=== PATIENT | female | born 1975 | race Caucasian/White ===

== ENCOUNTER 2022-07-16 11:55 | Outpatient (REF) | payer BC, SELFPAY ==
[2022-07-16 13:55] LABS: MANUAL DIFF FLAG NO
[2022-07-16 14:04] LABS: Basophils Absolute Auto 0.1 X10*3/uL (0.0-0.2); Basophils Percent Auto 0.7 % (0-2); Eosinophils Absolute Auto 0.1 X10*3/uL (0.0-0.4); Eosinophils Percent Auto 0.7 % (0-4); Hematocrit 41.3 % (37.0-47.0); Hemoglobin 13.7 g/dl (12.0-16.0); Imm Gran Abs Auto 0.02 X10*3/uL (0.00-0.03); Imm Gran Pct Auto 0.3 % (0.0-0.4); Lymphocytes Absolute Auto 1.4 X10*3/uL (1.2-4.9); Lymphocytes Percent Auto 20.2 % (20-40); Mean Corpuscular HGB Conc 33.2 g/dl (31.0-35.0); Mean Corpuscular Hemoglobin 29.1 pg (27.0-33.0); Mean Corpuscular Volume 87.9 fL (80.0-98.0); Mean Platelet Volume 9.7 fL (9.4-12.3); Monocytes Absolute Auto 0.4 X10*3/uL (0.1-1.2); Monocytes Percent Auto 5.5 % (2-11); Neutrophils Absolute Auto 5.1 x10*3/uL (2.0-8.3); Neutrophils Percent Auto 72.6 % (45-73); Platelet Count 205 X10*3/uL (160-400); Red Cell Distribution Width 11.9 % (11.0-16.0)
[2022-07-16 14:19] LABS: Estimated Average Glucose 105 mg/dL; Hemoglobin A1c % 5.3 %
[2022-07-16 14:25] LABS: Alanine Aminotransferase 15 U/L (0-31); Albumin Level 4.6 g/dL (3.5-5.0); Alkaline Phosphatase 64 U/L (39-117); Anion Gap 13 (12-20); Aspartate Amino Transferase 16 U/L (5-31); Bilirubin Total 0.4 mg/dL (0.0-1.0); Blood Urea Nitrogen 15 mg/dL (9-16); C Reactive Protein 0.33 mg/dL (< or = 0.50); Calcium 9.5 mg/dL (8.4-10.2); Carbon Dioxide 31 mmol/L (22-29); Chloride 103 mmol/L (96-108); Estimated Glomerular Filt Rate > 60; Glucose Random 96 mg/dL (60-115); Iron 79 mcg/dL (30-160); Percent Iron Saturation 25 % (15-50); Potassium 5.4 mmol/L (3.3-5.1); Sodium 142 mmol/L (135-145); Total Iron Binding Capacity 310 mcg/dL (228-428); Total Protein 7.1 g/dL (6.5-8.0); Unsaturated Iron Binding 231 ug/dL
[2022-07-16 14:46] LABS: Ferritin 99 ng/mL (10-250); Thyroid Stimulating Hormone 0.65 uIU/mL (0.32-4.0); Vitamin D 25-OH Total 29.2 ng/mL (>30)
[2022-07-16 15:15] LABS: Folate 16.6 ng/mL (> or = 4.0); Vitamin B12 457 pg/mL (200-900)
[2022-07-17 09:03] LABS: Lyme Abs Screen <0.90 index
== END 2022-07-16 11:56 | disposition home or self-care (01) ==
LOC: HO.MANLDS 11:55
PROVIDERS: Visit Provider Internal Medicine
DX: R53.83 Other fatigue (principal); R63.4 Abnormal weight loss
CPT/HCPCS: 36415; 80053; 82306; 82607; 82728; 82746; 83036; 83540; 84439; 84443; 85025; 86140; 86617; 86618

== ENCOUNTER 2023-04-29 08:45 | Outpatient (REF) | payer BC, SELFPAY ==
[2023-04-29 11:14] LABS: MANUAL DIFF FLAG NO
[2023-04-29 11:40] LABS: Basophils Percent Auto 0.6 % (0-2); Eosinophils Absolute Auto 0.1 X10*3/uL (0.0-0.4); Hematocrit 43.7 % (37.0-47.0); Hemoglobin 14.3 g/dl (12.0-16.0); Imm Gran Abs Auto 0.01 X10*3/uL (0.00-0.03); Imm Gran Pct Auto 0.2 % (0.0-0.4); Lymphocytes Absolute Auto 1.4 X10*3/uL (1.2-4.9); Lymphocytes Percent Auto 30.1 % (20-40); Mean Corpuscular HGB Conc 32.7 g/dl (31.0-35.0); Mean Corpuscular Hemoglobin 29.7 pg (27.0-33.0); Mean Corpuscular Volume 90.7 fL (80.0-98.0); Mean Platelet Volume 10.2 fL (9.4-12.3); Monocytes Absolute Auto 0.3 X10*3/uL (0.1-1.2); Monocytes Percent Auto 6.9 % (2-11); Neutrophils Absolute Auto 2.8 x10*3/uL (2.0-8.3); Neutrophils Percent Auto 59.2 % (45-73); Platelet Count 194 X10*3/uL (160-400); Red Blood Count 4.82 X10*6/uL (4.20-5.50); Red Cell Distribution Width 11.9 % (11.0-16.0); White Blood Count 4.7 X10*3/uL (4.8-10.8)
[2023-04-29 12:11] LABS: Alanine Aminotransferase 12 U/L (0-31); Albumin Level 4.7 g/dL (3.5-5.0); Alkaline Phosphatase 55 U/L (39-117); Anion Gap 14 (12-20); Aspartate Amino Transferase 17 U/L (5-31); Bilirubin Total 0.3 mg/dL (0.0-1.0); Blood Urea Nitrogen 15 mg/dL (9-16); Calcium 9.9 mg/dL (8.4-10.2); Carbon Dioxide 28 mmol/L (22-29); Chloride 106 mmol/L (96-108); Cholesterol 249 mg/dL; Estimated Glomerular Filt Rate > 60; Glucose Random 96 mg/dL (60-115); HDL Cholesterol 53 mg/dL; Iron 80 mcg/dL (30-160); LDL Cholesterol Calculated 176 mg/dl; Percent Iron Saturation 29 % (15-50); Potassium 4.5 mmol/L (3.3-5.1); Sodium 143 mmol/L (135-145); Total Iron Binding Capacity 280 mcg/dL (228-428); Total Protein 7.2 g/dL (6.5-8.0); Triglycerides 101 mg/dL; Unsaturated Iron Binding 200 ug/dL
[2023-04-29 12:17] LABS: Estimated Average Glucose 103 mg/dL; Hemoglobin A1c % 5.2 %
[2023-04-29 12:31] LABS: Ferritin 108 ng/mL (10-250); Thyroid Stimulating Hormone 0.98 uIU/mL (0.32-4.0); Vitamin D 25-OH Total 41.2 ng/mL (>30)
[2023-04-29 12:43] LABS: Folate 12.1 ng/mL (> or = 4.0); Vitamin B12 594 pg/mL (200-900)
[2023-04-30 16:44] LABS: Calcium (PTHI) 9.3 mg/dL (8.6-10.2); PTHI 38 pg/mL (16-77)
[2023-05-01 12:09] LABS: CA-125 7 U/mL (<35)
[2023-05-11 22:49] LABS: Estradiol Free <0.03 pg/mL; Estradiol, Ultrasensitive <2 pg/mL
== END 2023-04-29 08:46 | disposition home or self-care (01) ==
LOC: HO.MANLDS 08:45
PROVIDERS: Visit Provider Physician Assistant
DX: R53.83 Other fatigue (principal); E78.2 Mixed hyperlipidemia; R73.01 Impaired fasting glucose; N20.2 Calculus of kidney with calculus of ureter; Z90.711 Acquired absence of uterus with remaining cervical stump; Z80.3 Family history of malignant neoplasm of breast
CPT/HCPCS: 36415; 80053; 80061; 82306; 82607; 82670; 82681; 82728; 82746; 83036; 83540; 83970; 84439; 84443; 85025; 86304

== ENCOUNTER 2024-05-19 10:10 | Outpatient (REF) | payer BC, SELFPAY ==
[2024-05-19 13:01] LABS: MANUAL DIFF FLAG NO
[2024-05-19 13:11] LABS: Basophils Absolute Auto 0.1 X10*3/uL (0.0-0.2); Basophils Percent Auto 0.9 % (0-2); Eosinophils Absolute Auto 0.1 X10*3/uL (0.0-0.4); Hematocrit 43.7 % (37.0-47.0); Hemoglobin 14.2 g/dl (12.0-16.0); Imm Gran Abs Auto 0.02 X10*3/uL (0.00-0.03); Imm Gran Pct Auto 0.4 % (0.0-0.4); Lymphocytes Absolute Auto 1.5 X10*3/uL (1.2-4.9); Lymphocytes Percent Auto 27.1 % (20-40); Mean Corpuscular HGB Conc 32.5 g/dl (31.0-35.0); Mean Corpuscular Hemoglobin 29.6 pg (27.0-33.0); Mean Corpuscular Volume 91.2 fL (80.0-98.0); Mean Platelet Volume 9.6 fL (9.4-12.3); Monocytes Absolute Auto 0.3 X10*3/uL (0.1-1.2); Neutrophils Absolute Auto 3.5 x10*3/uL (2.0-8.3); Neutrophils Percent Auto 63.6 % (45-73); Platelet Count 199 X10*3/uL (160-400); Red Blood Count 4.79 X10*6/uL (4.20-5.50); White Blood Count 5.5 X10*3/uL (4.8-10.8)
[2024-05-19 13:50] LABS: Alanine Aminotransferase 12 U/L (0-31); Albumin Level 4.4 g/dL (3.5-5.0); Alkaline Phosphatase 53 U/L (39-117); Anion Gap 12 (12-20); Aspartate Amino Transferase 14 U/L (5-31); Bilirubin Total 0.3 mg/dL (0.0-1.0); Blood Urea Nitrogen 15 mg/dL (9-16); Calcium 9.5 mg/dL (8.4-10.2); Carbon Dioxide 29 mmol/L (22-29); Chloride 105 mmol/L (96-108); Estimated Glomerular Filt Rate > 60; Glucose Random 86 mg/dL (60-115); Potassium 4.4 mmol/L (3.3-5.1); Sodium 142 mmol/L (135-145); Total Protein 6.6 g/dL (6.5-8.0)
[2024-05-19 14:02] LABS: Thyroid Stimulating Hormone 0.88 uIU/mL (0.32-4.0)
[2024-05-19 14:19] LABS: Folate 10.9 ng/mL (> or = 4.0); Vitamin B12 459 pg/mL (200-900)
== END 2024-05-19 10:11 | disposition home or self-care (01) ==
LOC: HO.MANLDS 10:10
PROVIDERS: Visit Provider Internal Medicine
DX: R63.4 Abnormal weight loss (principal); Z84.81 Family history of carrier of genetic disease
CPT/HCPCS: 36415; 80053; 82607; 82746; 84443; 85025

== ENCOUNTER 2024-07-29 12:08 | Outpatient (REF) | payer BC, SELFPAY | END 2024-07-29 12:09 | disposition home or self-care (01) | LOC: HO.MANLDS 12:08 | PROVIDERS: Visit Provider Physician Assistant | DX: Z13.89 Encounter for screening for other disorder (principal) ==

== ENCOUNTER 2025-06-22 07:45 | Outpatient (REF) | payer BC, SELFPAY ==
--- OUTSIDE RECORDS SUMMARY | 2025-06-22 07:47 | XMS_ITS | Encounter Summary ---
Author Organization [facility] Address [address] [place] [address] [place] [phone] Phone Care Team Providers Care Blanket Binder Name Role Phone Brodie Esposito DO Primary Care Provider [phone] Brodie Esposito Unavailable Encounter Details Date Type Department Care Team (Latest Contact Info) Description 06/13/2020 Transcribe Orders Virtual Department [address] [place] [address] Dionne Leiva PA [address] [place] [address] [place] [address] Nausea (Primary Dx) Social History Tobacco Use Types Packs/Day Years Used Date Smoking Tobacco: Former Smokeless Tobacco: Never Comments No Sex and Gender Information Value Date Recorded Sex Assigned at Female 11/09/2021 5:37 AM EST Legal Sex Female 9:31 PM EDT Gender Identity Female 11/09/2021 5:37 AM EST Sexual Orientation Straight 11/09/2021 5: 37 AM EST documented as of this encounter Plan of Treatment Upcoming Encounters Date Type Department Care Team (Late st Contact Info) Description 06/22/2025 1:00 PM EDT Appointment [facility], [facility] Scan - [facility] [address] [place] [address] Dionne Leiva PA [address] [facility] [place] [address] [place] [address] documented as of this encounter Results * US Abdomen Complete (06/27/2020 9:53 AM EDT) Anatomical Region Laterality Modality Abdomen Ultrasound 06/27/2020 9:56 AM EDT Impressions 06/27/2020 10:41 AM EDT No findings to account for right upper quadrant pain. Narrative 06/27/2020 10:41 AM EDT COMPARISON: Renal and bladder ultrasound 09/10/2018. CT abdomen pelvis 12/10/2016. ABDOMEN ULTRASOUND FINDINGS: Liver: Normal. Gallbladder/Biliary Tree: Gallbladder is normal. The common bile duct measures 5 mm which is normal. Pancreas: Imaged pancreas is normal. Pancreatic tail is obscured by bowel gas. Kidneys: Normal. Spleen: Stable 9 mm ill-defined hypoechoic mass which may represent a hemangioma. Proximal abdominal aorta/IVC: Distal abdominal aorta is obscured by bowel gas. Otherwise unremarkable. Procedure Note Anthony Davidson MD - 06/27/2020 COMPARISON: Renal and bladder ultrasound 09/10/2018. CT abdomen pelvis12/10/2016. ABDOMEN ULTRASOUND FINDINGS: Liver: Normal. Gallbladder/Biliary Tree: Gallbladder is normal. The common bile ductmeasures 5 mm which is normal. Pancreas: Imaged pancreas is normal. Pancreatic tail is obscured bybowel gas. Kidneys: Normal. Spleen: Stable 9 mm ill-defined hypoechoic mass which may represent ahemangioma. Proximal abdominal aorta/IVC: Distal abdominal aorta is obscured by bowelgas. Otherwise unremarkable. IMPRESSION: No findings to account for right upper quadrant pain. us Dionne DEY IMG US ABDOMEN Final Resul t documented in this encounter Visit Diagnoses Diagnosis Nausea- Primary Nausea alone Nausea Nausea alone documented in this encounter Care Teams Blanket Binder Relationship Specialty Start Date End Date Brodie Esposito DO [email or web address] PCP - General Internal Medicine 06/17/18 Brodie Esposito DO [address] [place] [address] [email or web address] Insurance Assigned Provider 02/08/24 documented as of this encounter Additional Source Comments The information contained in this document represents components of the legal health record. It is not the complete legal health record.[facility]
[2025-06-22 13:10] LABS: MANUAL DIFF FLAG NO
[2025-06-22 13:13] LABS: Hematocrit 42.9 % (37.0-47.0); Hemoglobin 14.1 g/dl (12.0-16.0); Imm Gran Abs Auto 0.01 X10*3/uL (0.00-0.03); Imm Gran Pct Auto 0.2 % (0.0-0.4); Lymphocytes Absolute Auto 1.7 X10*3/uL (1.2-4.9); Mean Corpuscular HGB Conc 32.9 g/dl (31.0-35.0); Mean Corpuscular Hemoglobin 29.6 pg (27.0-33.0); Mean Corpuscular Volume 89.9 fL (80.0-98.0); NRBC Abs Auto 0.000 X10*3/uL (0.0-0.012); NRBC Pct Auto 0.0 /100WBC (0.0-0.2); Platelet Count 190 X10*3/uL (160-400); Red Blood Count 4.77 X10*6/uL (4.20-5.50); White Blood Count 5.8 X10*3/uL (4.8-10.8)
[2025-06-22 13:41] LABS: Alanine Aminotransferase 16 U/L (0-31); Albumin Level 4.5 g/dL (3.5-5.0); Alkaline Phosphatase 57 U/L (39-117); Anion Gap 10 (12-20); Aspartate Amino Transferase 25 U/L (5-31); Blood Urea Nitrogen 17 mg/dL (9-16); Calcium 9.2 mg/dL (8.4-10.2); Carbon Dioxide 31 mmol/L (22-29); Chloride 105 mmol/L (96-108); Cholesterol 250 mg/dL (<200); Estimated Glomerular Filt Rate > 60; HDL Cholesterol 43 mg/dL (>40); Potassium 4.5 mmol/L (3.3-5.1); Sodium 141 mmol/L (135-145); Total Protein 6.8 g/dL (6.5-8.0); Triglycerides 173 mg/dL (<150)
[2025-06-22 13:52] LABS: Hemoglobin A1C 144.4049 umol/L; Total Hemoglobin (HGBA1C) 3856.5948 umol/L
[2025-06-22 14:00] LABS: Folate 10.9 ng/mL (> or = 4.0); Vitamin B12 > 2000 pg/mL (200-900)
== END 2025-06-22 07:46 | disposition home or self-care (01) ==
LOC: HO.MANLDS 07:45
PROVIDERS: Visit Provider Physician Assistant
DX: Z01.83 Encounter for blood typing (principal); E78.2 Mixed hyperlipidemia; Z13.1 Encounter for screening for diabetes mellitus
CPT/HCPCS: 36415; 80053; 80061; 82607; 82746; 83036; 85025; 86901